=== PATIENT | male | born 1990 | race Two or more races ===

== ENCOUNTER 2018-06-24 17:34 | Emergency (ER) | payer OTHER ==
[~2018-06-24] VITALS: Ht 182.9 cm; Wt 108.9 kg
[2018-06-24] MEDS ORDERED: ONDANSETRON HCL 4 MG/2 ML VIAL IV ONE ×2 (19:00→22:45)
[2018-06-24] MEDS ORDERED: MORPHINE SULFATE 4 MG/ML SYR/VIAL IV ONE ×2 (19:00→22:45)
[2018-06-24] MEDS: ETOMIDATE (2MG/ML) 20ML VIAL IV ONE ×2 (19:12→21:12)
[2018-06-24] MEDS ORDERED: ETOMIDATE (2MG/ML) 20ML VIAL IV ONE (23:15)
[2018-06-24 23:32] VITALS: BP 133/83
== END 2018-06-25 02:12 | disposition home or self-care (01) ==
LOC: ER 17:38
DX: S82.192A Other fracture of upper end of left tibia, initial encounter for closed fracture (principal); S43.005A Unspecified dislocation of left shoulder joint, initial encounter; R10.9 Unspecified abdominal pain; V86.56XA Driver of dirt bike or motor/cross bike injured in nontraffic accident, initial encounter; Y93.89 Activity, other specified; Y99.8 Other external cause status; Y92.89 Other specified places as the place of occurrence of the external cause
CPT/HCPCS: 23650; 29505; 70450; 71045; 72125; 73020; 73562; 73700; 74176; 96374; 96375; 96376; 99285; J2270; J2405